=== PATIENT | female | born 1980 | race Caucasian/White ===

== ENCOUNTER 2016-12-17 09:44 | Emergency (ER) | payer OTHER ==
[~2016-12-17] VITALS: Ht 172.7 cm; Wt 68.0 kg
[2016-12-17] MEDS ORDERED: MILK OF MA2400 MG/10 PO (11:19)
[2016-12-17] MEDS ORDERED: DIOCTO50 MG/5 ML PO (11:20)
[2016-12-17] MEDS ORDERED: XARELTO20 MG PO (11:20)
[2016-12-17] MEDS ORDERED: DILANTIN100 MG PO (11:21)
[2016-12-17] MEDS ORDERED: LIORESAL 10 MG10 MG PO (11:21)
[2016-12-17] MEDS ORDERED: KEPPRA 500 MG500 M1 PO (11:21)
[2016-12-17] MEDS ORDERED: BROMOCRIPTINE ME5 MG PO (11:22)
[2016-12-17] MEDS ORDERED: PAIN & FEVER325 MG PO (11:23)
[2016-12-17 12:30] VITALS: BP 135/78
== END 2016-12-17 13:49 ==
LOC: ER 09:44
DX: K94.23 Gastrostomy malfunction (principal); G40.909 Epilepsy, unspecified, not intractable, without status epilepticus; F10.99 Alcohol use, unspecified with unspecified alcohol-induced disorder; Z87.09 Personal history of other diseases of the respiratory system; Z88.5 Allergy status to narcotic agent; Z88.8 Allergy status to other drugs, medicaments and biological substances